=== PATIENT | female | born 1990 | race American Indian/Alaskan Native ===

== ENCOUNTER 2016-09-12 17:25 | Emergency (ER) | payer SELFPAY ==
[2016-09-12 19:06] VITALS: BP 143/88
== END 2016-09-12 19:35 | disposition left against medical advice (07) ==
LOC: ED 17:25
DX: R42 Dizziness and giddiness (principal); R53.1 Weakness; K21.9 Gastro-esophageal reflux disease without esophagitis; Z88.8 Allergy status to other drugs, medicaments and biological substances; Z53.21 Procedure and treatment not carried out due to patient leaving prior to being seen by health care provider